=== PATIENT | male | born 1935 | race Two or more races ===

== ENCOUNTER → 2024-09-20 07:11 | Outpatient (REF) | payer MEDICARE, BC, SELFPAY | LOC: PAVMRI 07:11 | PROVIDERS: ATTENDING PHYSICIAN Physical Medicine & Rehabilitation; FAMILY PHYSICIAN Family Medicine Geriatric Medicine | DX: M54.16 Radiculopathy, lumbar region (principal) | CPT/HCPCS: 72148 ==